=== PATIENT | male | born 1990 | race Two or more races ===

== ENCOUNTER 2019-08-20 21:54 | Emergency (ER) | payer SELFPAY ==
[~2019-08-20] VITALS: Ht 175.3 cm; Wt 90.0 kg
[2019-08-20] MEDS ORDERED: LIDOCAINE 1% Multi-Dose 20 ML VIAL. ONE (22:35)
[2019-08-20] MEDS ORDERED: LIDOCAINE 1% Multi-Dose 20 ML VIAL. INJ ONE (23:00)
[2019-08-20] MEDS ORDERED: LIDOCAINE 1%/EPI 1:100,000 20 ML VIAL. INJ ONE (23:00)
[2019-08-20 23:05] VITALS: BP 121/65
--- NOTE | 2019-08-20 23:45 | PHYS DOC ---
Past Medical History Past Medical History: No Pertinent History Past Surgical History: No Surgical History Smoking Status: Current Every Day Smoker Additional Information: 6 CIGS /DAY Alcohol Use: Occasionally Additional Information: REPORTS 2 BEERS/DAY Adult General Chief Complaint Chief Complaint: LACERATION/[facility] Patient is a 29 year old male who presents with lacerations to his left forearm and right hand. Patient indicates that he had fallen through a glass door when he slipped on some water.[] Review of Systems Review of Systems Constitutional: Denies fever or chills [] Respiratory: Denies cough or shortness of breath [] Cardiovascular: No additional information not addressed in HPI [] Musculoskeletal: Lacerations to left forearm and right hand[] Integument: Denies rash or skin lesions [] Neurologic: Denies headache, focal weakness or sensory changes [] Current Medications Current Medications Current Medications Medications (Trade) Dose Ordered Sig/Gabby Start Time Stop Time Status Last Admin Dose Admin Lidocaine HCl (Lidocaine 1% 20ml Vial) 20 ml STK-MED ONCE 08/20/19 22:35 08/20/19 22:35 DC Lidocaine/ Epinephrine (LIDOCAINE 1%-EPI 1:100,000 Multi-Dose) 20 ml 1X ONCE 08/20/19 23:00 08/20/19 23:01 DC 08/20/19 23:04 20 ML Allergies Allergies Allergies Coded Allergies Type Severity Reaction Last Updated Verified No Known Drug Allergies 08/20/19 No Physical Exam Physical Exam Constitutional: Well developed, well nourished, no acute distress, non-toxic appearance. [] Cardiovascular:Heart rate regular rhythm, no murmur [] Lungs & Thorax: Bilateral breath sounds clear to auscultation [] Skin: Laceration #1 on left forearm is 8 cm in length extending through subcutaneous tissue and has short segment of 2 cm lacerating through fascia into muscle. Laceration is linear with sharp margins with exception of most distal portion where there is a small flap. Laceration #2 is just distal to laceration #1, measuring 2-1/2 cm, extending through dermis with sharp margins. Laceration #3 is on dorsal aspect of right hand and is 1.5 cm in length, extending into subcutaneous tissue with sharp margins. All lacerations are neurovascularly intact.[] Neurologic: Alert and oriented X 3, normal motor function, normal sensory function, no focal deficits noted. [] Current Patient Data Vital Signs Vital Signs Date Time Temp Pulse Resp B/P (MAP) Pulse Ox O2 Delivery O2 Flow Rate FiO2 08/20/19 23:05 86 18 121/65 (83) Room Air 08/20/19 21:58 98.3 98.3 EKG EKG [] Radiology/Procedures Radiology/Procedures [] Course & Med Decision Making Course & Med Decision Making Pertinent Labs and Imaging studies reviewed. (See chart for details) Laceration Repair by me: Anesthesia: 1% lidocaine locally Location: Left forearm Tendon/Joint/Nerves: No injury Foreign body: None detected after copious irrigation and exploration Technique: A total of 3 simple interrupted sutures were placed in a deep fascia of first laceration utilizing 5-0 Vicryl suture material. Externally, a total of 19 simple interrupted sutures were placed in the first laceration utilizing 5-0 Ethilon suture material. For second laceration, a total of 5 simple interrupted sutures were placed utilizing 5-0 Ethilon suture material. The third laceration was closed with a total of 3 simple interrupted sutures utilizing 5-0 Ethilon suture material. Complexity: The largest laceration did require sutures for laceration through fascia, into muscle layer Post Closure Length: 8 cm; 2.5 cm; 1.5 cm Patient's bleeding was easily controlled in the department and there is no indication of anemia. No evidence of compartment syndrome, neurologic injury, vascular injury, open joint, tendon laceration, or foreign body. Patient is appropriate for outpatient follow up. 48 hour wound check. Scar minimization instructions given. Dragon Disclaimer Dragon Disclaimer This electronic medical record was generated, in whole or in part, using a voice recognition dictation system. Departure Departure Impression: Primary Impression: Lacerations of multiple sites of left arm Additional Impression: Laceration of right hand Disposition: HOME, SELF-CARE Condition: STABLE Referrals: NO PCP (PCP) Patient Instructions: Form - Excuse from Work, School, or Physical Activity, Laceration Care, Adult Additional Instructions: Return for suture removal in 10-14 days. Scripts Cephalexin (KEFLEX) 500 Mg Capsule 1 CAP PO BID for 7 Days, #14 CAP 0 Refills Prov: AMITA WHEAT Jr. DO 08/21/19 Problem Qualifiers Primary Impression: Lacerations of multiple sites of left arm Encounter type: initial encounter Qualified Codes: S41.112A - Laceration without foreign body of left upper arm, initial encounter Additional Impression: Laceration of right hand Encounter type: initial encounter Foreign body presence: without foreign body Qualified Codes: S61.411A - Laceration without foreign body of right hand, initial encounter AMITA WHEAT Jr. DO Aug 20, 2019 23:44
[2019-08-21] MEDS ORDERED: CEPH-264 PO (00:05)
[2019-08-21] MEDS ORDERED: NEOMY/BACITR/POLYMYXIN OINT PACKET. TP ONE (00:30)
== END 2019-08-21 00:27 | disposition home or self-care (01) ==
LOC: ER 21:54
DX: S51.812A Laceration without foreign body of left forearm, initial encounter (principal); S61.411A Laceration without foreign body of right hand, initial encounter; F17.210 Nicotine dependence, cigarettes, uncomplicated; F10.10 Alcohol abuse, uncomplicated; W01.190A Fall on same level from slipping, tripping and stumbling with subsequent striking against furniture, initial encounter; Y93.89 Activity, other specified; Y92.89 Other specified places as the place of occurrence of the external cause; Y99.8 Other external cause status
CPT/HCPCS: 12002; 12034; 99285; J3490